=== PATIENT | female | born 1955 | race Caucasian/White ===

== ENCOUNTER 2020-12-11 17:28 | Emergency (ER) | payer MEDICARE, MEDICAID, SELFPAY ==
[2020-12-11 17:31] VITALS: BP 141/94; PULSE 108; RESP 22; TEMP 36.6; O2SAT 99
--- NOTE | 2020-12-11 19:51 | PC.NURSE ---
Pt states she fasted for 5 days recently and since has had back pain worsened by bending/lifting along with upper gastric discomfort. Last bowel movement was around 79 and intake has been poor. During fast she started noting rash across right abdomen.
--- NOTE | 2020-12-11 20:31 | ED.BACK ---
HPI - Back Pain/Injury General Chief Complaint: Back Pain/Injury Stated Complaint: sent by [facility] for eval of back pain Time Seen by Provider: 12/11/20 20:31 Source: patient History of Present Illness HPI Narrative: This is a 65-year-old female sent by the walk-in clinic for evaluation of back and epigastric pain. Patient has not had any fevers. No chills. No nausea or vomiting. She describes pain localized in the right thoracic back which is worse when she lays on that area. She also has some epigastric discomfort. On exam it is noted she has a large rash at that region specifically that has been present for approximately a week. Patient states she has not had this rash in the past. She has not had any active drainage from it. She states starts quite small and has increased in size to its current size of been stable. Patient states she has not been having bowel movements. She has been passing gas. She has been urinating regularly. Patient notes that she was fasting starting on November 26 and did not start eating any solids until approximately the November. She states she has been eating a yogurt occasionally or a [place] at cracker with some cashew butter but this is only intermittently and not regularly. She has tried Fleet's enemas as well as oral fiber and MiraLax at home. Related Data Previous Rx's Medication Instructions Recorded gabapentin 300 mg capsule 300 mg PO TID #30 cap 12/11/20 Allergies Allergy/AdvReac Type Severity Reaction Status Date / Time Penicillins Allergy Unknown Unverified 09/01/17 13:08 Review of Systems Review of Systems ROS Unobtainable: All systems reviewed & are unremarkable except as noted in HPI and below Exam Narrative Exam Narrative: GENERAL: Alert and oriented x three, thin female in mild distress. HEENT: Head normocephalic, atraumatic, EOMI, pupils reactive, face symmetric, moist mucous membranes NECK: Supple, full range of motion CARDIOVASCULAR: Regular rate and rhythm without murmurs, rubs or gallops. RESPIRATORY: Breath sounds equal bilaterally, no wheezes rales or rhonchi. ABDOMEN: Soft, nontender. Normoactive bowel sounds all 4 quadrants. No guarding or rebound, rigidity, no mass : No CVA tenderness EXTREMITIES: Normal range of motion, no clubbing or edema. Neurovascularly intact NEUROLOGICAL: Cranial nerves II through XII grossly intact. Moving all extremities SKIN: Warm, dry, no petechiae, patient has a rash along the right T7/T8 dermatome which does not cross midline which is has vesicles and blisters consistent with shingles. There is some mild erythema but no signs of cellulitis, there is no active drainage. Initial Vital Signs Initial Vital Signs: Vital Signs Temperature 97.9 F 12/11/20 17:31 Pulse Rate 108 H 12/11/20 17:31 Respiratory Rate 22 12/11/20 17:31 Blood Pressure 141/94 H 12/11/20 17:31 Pulse Oximetry 99 12/11/20 17:31 Course Orders Ordered: Discontinued Medications Hydrocodone Bitart/Acetaminophen (Hydrocodone/Acet 5/325 Prepack) 1 bottle MISC SEEINSTR ONE Stop: 12/11/20 21:13 Last Admin: 12/11/20 21:34 Dose: 1 bottle Documented by: STACEY Vital Signs Vital signs: Vital Signs - 8 hr 12/11/20 17:31 Temperature 97.9 F Pulse Rate 108 H Respiratory Rate 22 Blood Pressure 141/94 H Pulse Oximetry 99 MDM - Back Pain/Injury MDM Narrative Medical decision making narrative: This is a pleasant 65-year-old female who comes with a complaint of right thoracic back pain and epigastric pain which is exactly in the region of her shingles rash. Patient is also complaining of constipation but after discussion she has had minimal solid input after fasting for several weeks. She and I discussed that she would probably need to increase her fluid intake as well as or solids. Patient was started on acyclovir, gabapentin as needed for pain. Discharge Plan Departure Patient Disposition: Home Clinical Impression: Shingles Instructions: DI for Shingles Activity Restrictions/Additional Instructions: Follow up if you are having worsening symptoms with primary care. Take acyclovir until completely gone You may take gabapentin 1 tablet every 8 hours for pain. You need to take this medication regularly for it to be affective. It can be increased by primary care to a much higher dose if needed. You may take [place]/narcotic pain medication 1 tablet every 6 hours as needed. This medication can make you sleepy do not drive, perform hazardous activities or make any major decisions while taking it. This medication will make you constipated please take a stool softener once to twice daily until stools are soft and regular. Prescription to [facility] in [place]. Please return for rapidly worsening symptoms, fevers, persistent vomiting, new shortness of breath, lightheadedness or passing out, rapidly spreading redness, purulent drainage or signs of infection, if her abdomen is becoming distended or if you are not passing gas and still not having bowel movements. Prescriptions: New gabapentin 300 mg capsule 300 mg PO TID Qty: 30 RF: 0
[2020-12-11] MEDS: HYDROCODONE/ACET 5/325 PREPACK 1 BOTTLE MISC (21:34)
== END 2020-12-11 21:50 | disposition home or self-care (01) ==
PROVIDERS: Emergency Provider Emergency Medicine
DX: B02.9 Zoster without complications (principal); M54.6 Pain in thoracic spine; R10.13 Epigastric pain
CPT/HCPCS: 99281